=== PATIENT | female | born 1965 | race Caucasian/White ===

== ENCOUNTER 2017-07-04 19:04 | Emergency (ER) | payer BC ==
[2017-07-04 21:14] VITALS: BP 122/69
--- NOTE | 2017-07-04 21:15 | UC ---
Skin Complaint HPI - HPI Summary HPI Summary: 51 YEAR OLD FEMALE PRESENTS WITH COMPLAINS OF RASH ON RIGHT ANTERIOR OTERO. - History of Current Complaint Chief Complaint: UCSkin Time Seen by Provider: 07/04/17 21:15 Stated Complaint: SKIN COMPLAINT RIGHT LEG Hx Obtained From: Patient Hx Last Menstrual Period: n/a Onset/Duration: Sudden Onset Skin Exposure Onset/Duration: Days Ago Onset Severity: Moderate - Allergy/Home Medications Allergies/Adverse Reactions: Allergies Allergy/AdvReac Type Severity Reaction Status Date / Time Shellfish Allergy Allergy Hives Verified 07/04/17 21:14 Sulfa Drugs Allergy Hives Verified 07/04/17 21:14 Review of Systems Constitutional: Negative Skin: Rash, Other - RIGTH ANTERIOR OTERO Eyes: Negative ENT: Negative Respiratory: Negative Cardiovascular: Negative Gastrointestinal: Negative Genitourinary: Negative Motor: Negative Neurovascular: Negative Musculoskeletal: Negative Neurological: Negative Psychological: Negative All Other Systems Reviewed And Are Negative: Yes PMH/Surg Hx/FS Hx/Imm Hx Previously Healthy: Yes - Surgical History Surgical History: Yes Surgery Procedure, Year, and Place: Thyroidectomy - Social History Alcohol Use: None Substance Use Type: None Smoking Status (MU): Never Smoked Tobacco - Immunization History Most Recent Influenza Vaccination: no Physical Exam Triage Information Reviewed: Yes Vital Signs: Initial Vital Signs Temp 36.6 C 07/04/17 21:09 Pulse 77 07/04/17 21:09 Resp 14 07/04/17 21:09 BP 122/69 07/04/17 21:09 Pulse Ox 100 07/04/17 21:09 Vital Signs Reviewed: Yes Eye Exam: Normal ENT Exam: Normal Dental Exam: Normal Neck exam: Normal Neck: Positive: 1 Respiratory Exam: Normal Cardiovascular Exam: Normal Abdominal Exam: Normal Musculoskeletal Exam: Normal Neurological Exam: Normal Psychological Exam: Normal Skin: Positive: rashes, Other - RIGHT ANTERIOR OTERO Course/Dx - Diagnoses Provider Diagnoses: RASH RIGHT ANTERIOR OTERO Discharge - Discharge Plan Condition: Stable Disposition: HOME Prescriptions: Betamethasone Lois 0.1% ON(NF) [Betamethasone Lois 0.1% OINT(NF)] 1 applic TOPICAL BID #45 gm Cephalexin CAP* [Keflex CAP*] 500 mg PO TID #21 cap Permethrin 5% CREAM* 1 applic TOPICAL SEE INSTRUCTIONS #1 tube Patient Education Materials: Acute Rash (ED) Referrals: Rustam,Mis [Medical Doctor] - No Primary Care Phys,NOPCP [Primary Care Provider] -
[2017-07-04] MEDS ORDERED: Cephalexin CAP* 500 MG PO ONE (21:39)
== END 2017-07-04 21:50 | disposition home or self-care (01) ==
LOC: UCCORT 19:04
DX: R21 Rash and other nonspecific skin eruption (principal)
CPT/HCPCS: 99212; A9270-GY; G0463

== ENCOUNTER 2018-11-10 19:25 | Emergency (ER) | payer BC ==
[2018-11-10 20:26] VITALS: BP 122/66
[2018-11-10] MEDS ORDERED: Amoxicillin PO (*) 250 MG CAP PO ONE (20:41)
[2018-11-10] MEDS ORDERED: Amoxicillin PO (*) 500 MG CAP PO ONE (20:41)
--- NOTE | 2018-11-10 20:47 | UC ---
Throat Pain/Nasal Sav HPI - HPI Summary HPI Summary: 53 yo female with 3-4 week hx of sinus pressure and pain post nasal drip now with sore throat no f/c no n/v/d no myalgias hx of frequent sinus issues was unable to get in to see her ENT - History of Current Complaint Chief Complaint: UCGeneralIllness Stated Complaint: SORE THROAT,EARS,SINUSES Time Seen by Provider: 11/10/18 20:31 Hx Obtained From: Patient Hx Last Menstrual Period: n/a Onset/Duration: Sudden Onset, Lasting Weeks Severity: Moderate Pain Intensity: 5 Pain Scale Used: 0-10 Numeric Cough: None Associated Signs & Symptoms: Positive: Sinus Discomfort, Nasal Discharge - Allergies/Home Medications Allergies/Adverse Reactions: Allergies Allergy/AdvReac Type Severity Reaction Status Date / Time MS Shellfish Allergy Allergy Hives Verified 07/04/17 21:14 [Shellfish Allergy] MS Sulfa Drugs [Sulfa Drugs] Allergy Hives Verified 07/04/17 21:14 Home Medications: Home Medications Acetaminophen [Tylenol Extra Strength] 500 mg PO DAILY 11/10/18 [History Confirmed 11/10/18] PMH/Surg Hx/FS Hx/Imm Hx Previously Healthy: Yes Endocrine History: Thyroid Disease - Surgical History Surgical History: Yes Surgery Procedure, Year, and Place: Thyroidectomy - Family History Known Family History: Positive: Hypertension Negative: Cardiac Disease, Diabetes - Social History Alcohol Use: None Substance Use Type: None Smoking Status (MU): Never Smoked Tobacco - Immunization History Most Recent Influenza Vaccination: no Review of Systems All Other Systems Reviewed And Are Negative: Yes Constitutional: Positive: Fatigue Skin: Positive: Negative Eyes: Positive: Negative ENT: Positive: Sore Throat, Nasal Discharge, Sinus Congestion, Sinus Pain/ Tenderness Respiratory: Positive: Cough Cardiovascular: Positive: Negative Gastrointestinal: Positive: Negative Genitourinary: Positive: Negative Motor: Positive: Negative Neurovascular: Positive: Negative Musculoskeletal: Positive: Negative Neurological: Positive: Negative Psychological: Positive: Negative Physical Exam Triage Information Reviewed: Yes Appearance: Well-Appearing, No Pain Distress, Well-Nourished Vital Signs: Initial Vital Signs Temp 97.8 F 11/10/18 20:23 Pulse 73 11/10/18 20:23 Resp 16 11/10/18 20:23 BP 122/66 11/10/18 20:23 Pulse Ox 100 11/10/18 20:23 Vital Signs Reviewed: Yes Eyes: Positive: Conjunctiva Clear ENT: Positive: Hearing grossly normal, Pharyngeal erythema, Nasal congestion, Nasal drainage, TMs normal, Sinus tenderness, Uvula midline. Negative: Tonsillar swelling, Tonsillar exudate, Trismus, Muffled voice, Hoarse voice, Dental tenderness Neck: Positive: Supple, Nontender, Enlarged Nodes @ - mild ant cerv Respiratory: Positive: Lungs clear, Normal breath sounds, No respiratory distress, No accessory muscle use Cardiovascular: Positive: RRR, No Murmur Musculoskeletal: Positive: ROM Intact, No Edema Neurological: Positive: Alert Psychological Exam: Normal Skin Exam: Normal Throat Pain/Nasal Course/Dx - Differential Dx/Diagnosis Provider Diagnosis: Acute sinusitis Discharge - Sign-Out/Discharge Documenting (check all that apply): Patient Departure All imaging exams completed and their final reports reviewed: No Studies - Discharge Plan Condition: Stable Disposition: HOME Prescriptions: Amoxicillin PO (*) [Amoxicillin 875 MG (*)] 875 mg PO BID #14 tab Patient Education Materials: Sinusitis (ED) Referrals: Melia Wilkinson PA [Primary Care Provider] - 5 Days (if not better) - Billing Disposition and Condition Condition: STABLE Disposition: Home
== END 2018-11-10 20:55 | disposition home or self-care (01) ==
LOC: UCCORT 19:25
DX: J01.90 Acute sinusitis, unspecified (principal); Z91.013 Allergy to seafood; Z88.2 Allergy status to sulfonamides
CPT/HCPCS: 99212; A9270-GY; G0463